=== PATIENT | female | born 1975 | race Caucasian/White ===

== ENCOUNTER 2017-01-14 15:12 | Emergency (ER) | payer MEDICAID, OTHER ==
[~2017-01-14] VITALS: Ht 162.6 cm; Wt 87.8 kg
[~2017-01-14 15:12] MED LIST: AMIT25 PO; SERT50 PO
[2017-01-14 15:19] VITALS: BP 132/88; PULSE 100; RESP 16; TEMP 98.3; O2SAT 96
[2017-01-14] MEDS ORDERED: OSEL30 PO (15:27)
[2017-01-14] MEDS ORDERED: AMOX500C PO (15:27)
--- NOTE | 2017-01-14 15:28 | PD ---
HPI . Small pimple x 2 on right side of face Chief Complaint: Oral / Dental Pain or Problem Time Seen by Provider: 15:28 Travel History International Travel<30 days: No Contact w/Intl Traveler<30days: No Traveled to known affect area: No History of Present Illness HPI 41-year-old female with history of asthma here with complaints of 2 small pimples on her right side of her face. One is located lateral to the lip the other one is located above the lip. She says this started on Thursday and has been progressively worsening. She tried popping them yesterday and only had a small amount of fluid come out. She thinks they're infected and decided to come in for further evaluation. She denies any fever or chills. She has no other complaints. She has a primary care follow-up on Thursday. [facility] Past Medical History Asthma: Yes Diminished Hearing: No ?: Not Tubal Ligation: Yes Past Surgical History Cholecystectomy: Yes Social History Alcohol Use: No Tobacco Use: No Substance Use: No Allergies-Medications (Allergen,Severity, Reaction): Coded Allergies: Darvocet-N 100 (Verified Allergy, Unknown, SOB, 01/14/17) Reported Meds & Prescriptions Reported Meds & Active Scripts Active Bactroban Topical (Mupirocin) 2% Oint 1 Appl TOPICAL BID Keflex (Cephalexin) 500 Mg Cap 500 Mg PO Q6H Bactrim DS (Sulfamethoxazole-Trimethoprim) 800-160 Mg Tab 1 Tab PO BID Reported Amoxicillin 500 Mg Cap 500 Mg PO BID Tamiflu (Oseltamivir Phosphate) 30 Mg Cap 30 Mg PO DAILY Review of Systems General / Constitutional: No: Fever Eyes: No: Visual changes HENT: No: Headaches Cardiovascular: No: Chest Pain or Discomfort Respiratory: No: Shortness of Breath Gastrointestinal: No: Abdominal Pain Genitourinary: No: Dysuria Musculoskeletal: No: Pain Skin: Positive Lesions (two small pimples/cellulitis on face), No Rash Neurologic: No: Weakness Psychiatric: No: Depression Endocrine: No: Polydipsia Hematologic/Lymphatic: No: Easy Bruising Physical Exam Narrative GENERAL: AAO x 3, no acute distress, Well-nourished, well-developed patient. SKIN: Warm and dry. No visible rashes or bruising. On right medial cheek there is a small 1 cm area of cellulitis (pimple) with erythema and warmth, no abscess formation, above lip there is also a smaller 0.7mm area of cellulitis without abscess formation. HEAD: Normocephalic and atraumatic. EYES: No scleral icterus. No injection or drainage. ENT: No nasal drainage noted. Mucous membranes pink. Airway patent. NECK: Supple, trachea midline. No JVD. CARDIOVASCULAR: Regular rate and rhythm without murmurs, gallops, or rubs. RESPIRATORY: Breath sounds equal bilaterally. No accessory muscle use. No rhonchi or rales. GASTROINTESTINAL: Abdomen soft, non-tender, nondistended. EXTREMITIES: No cyanosis or edema. BACK: Nontender without obvious deformity. No CVA tenderness. PSYCH: AAO x 3, normal affect. Data Data Last Documented VS Vital Signs Date Time Temp Pulse Resp B/P Pulse Ox O2 Delivery O2 Flow Rate FiO2 01/14/17 15:19 98.3 100 16 132/88 96 MDM Medical Decision Making Medical Screen Exam Complete: Yes Emergency Medical Condition: Yes Medical Record Reviewed: Yes Differential Diagnosis cellulitis, less likely abscess, less likely folliculitis Narrative Course 41-year-old female with history of asthma here with complaints of 2 small pimples on her right side of her face. One is located lateral to the lip the other one is located above the lip. She says this started on Thursday and has been progressively worsening. She tried popping them yesterday and only had a small amount of fluid come out. She thinks they're infected and decided to come in for further evaluation. She denies any fever or chills. She has no other complaints. She has a primary care follow-up on Thursday. Patient seen and examined. She does have 2 small areas of cellulitis on her cheek and above her lip. I have discussed that there is no abscess for me to drain. I recommend oral antibiotics and some topical Bactroban. She'll follow-up with her primary care provider on Thursday, where she can have this reassessed. If the area worsens, she has been advised to return to the emergency department. Patient verbalized understanding of instructions, questions were answered, and thanked me for their care. I advised them if their condition worsens, please return to the nearest emergency room for further care. Diagnosis Primary Impression: Cellulitis Qualified Code: L03.211 - Cellulitis of face Patient Instructions: Cellulitis (ED), General Instructions Additional Instructions: Please return to emergency department if your symptoms return or worsen. Follow up with your primary care provider. Take medications as prescribed. Return to the emergency department if this area worsens. Keep applying warm compresses as this may help form a head that may be drainable. Refrain from touching, scratching or popping these bumps, as this can worsen them. Med/Other Pt SpecificInfo: Prescription(s) given Scripts Mupirocin Topical (Bactroban Topical)2% Oint1 Appl TOPICAL BID #1 TUBE Ref 0 Prov:Jerome Hilton MD 01/14/17 Cephalexin (Keflex)500 Mg Hxp925 Mg PO Q6H #28 CAP Ref 0 Prov:Jerome Hilton MD 01/14/17 Sulfamethoxazole-Trimethoprim (Bactrim DS)800-160 Mg Tab1 Tab PO BID #20 TAB Prov:Jerome Hilton MD 01/14/17 Disposition: 01 DISCHARGE HOME Condition: Stable Nika Mckeon Jan 14, 2017 15:28
[2017-01-14] MEDS ORDERED: CEPH-460 PO (15:35)
[2017-01-14] MEDS ORDERED: BACT800T5 PO (15:35)
[2017-01-14] MEDS ORDERED: BACT2OIN TOPICAL (15:40)
== END 2017-01-14 16:09 | disposition home or self-care (01) ==
LOC: PHEFT 15:12
DX: L03.211 Cellulitis of face (principal); K13.0 Diseases of lips
CPT/HCPCS: 99283

== ENCOUNTER 2017-01-26 11:35 | Emergency (ER) | payer MEDICAID ==
[~2017-01-26] VITALS: Ht 162.6 cm; Wt 87.5 kg
[~2017-01-26 11:35] MED LIST changes: -AMIT25 PO; +AMOX500C PO; +BACT2OIN TOPICAL; +BACT800T5 PO; +CEPH-460 PO; +OSEL30 PO; -SERT50 PO
[2017-01-26 11:39] VITALS: BP 113/79; PULSE 85; RESP 16; TEMP 97.9; O2SAT 100
--- NOTE | 2017-01-26 12:16 | PD ---
HPI Chief Complaint: Eye Problems/Injury Time Seen by Provider: 12:02 Travel History International Travel<30 days: No Contact w/Intl Traveler<30days: No Traveled to known affect area: No History of Present Illness HPI This patient complains of irritation and itchiness and runny of her left eye. It's red. No eye pain or vision loss. Symptoms severity is mild to moderate PFSH Past Medical History Asthma: Yes Diminished Hearing: No Influenza Vaccination: Yes ?: Not LMP: 01/16/17 Tubal Ligation: Yes Past Surgical History Cholecystectomy: Yes Other Surgery: Yes (BACK SX. TIMES 2) Social History Alcohol Use: Yes (DAILY BEER) Tobacco Use: Yes (3 CIGS A DAY) Substance Use: No Allergies-Medications (Allergen,Severity, Reaction): Coded Allergies: Darvocet-N 100 (Verified Allergy, Unknown, SOB, 01/26/17) Reported Meds & Prescriptions Reported Meds & Active Scripts Active No Active Prescriptions or Reported Medications Review of Systems General / Constitutional: No: Fever HENT: No: Headaches Cardiovascular: No: Chest Pain or Discomfort Physical Exam Narrative NECK: Symmetrical appearance, midline trachea. No mass or crepitus. Thyroid without enlargement, tenderness, or mass. SKIN: Inspection shows no rash or ulcers. Palpation shows no induration or nodules. Psych: Normal mood and affect. Normal insight and judgment. Right sclerae clear and left is diffusely injected. There is clear watery drainage from the left eye Fluorescein exam of the left eye is negative Data Data Last Documented VS Vital Signs Date Time Temp Pulse Resp B/P Pulse Ox O2 Delivery O2 Flow Rate FiO2 01/26/17 11:46 85 16 01/26/17 11:39 97.9 113/[address] [facility] Medical Decision Making Medical Screen Exam Complete: Yes Emergency Medical Condition: Yes Medical Record Reviewed: Yes Differential Diagnosis Corneal foreign body, corneal abrasion, conjunctivitis Narrative Course I have reviewed the patient's electronic medical record. Presentation are most consistent with an acute viral conjunctivitis of the left eye. Supportive care discussed. No indication for antibiotics Diagnosis Primary Impression: Viral conjunctivitis of left eye Additional Instructions: The patient was advised to follow up with their physician and return if they worsen. Med/Other Pt SpecificInfo: Other Scripts No Active Prescriptions or Reported Meds Disposition: 01 DISCHARGE HOME Condition: Stable Tyson Neely MD Jan 26, 2017 12:16
== END 2017-01-26 12:25 | disposition home or self-care (01) ==
LOC: PHEFT 11:35
DX: B30.9 Viral conjunctivitis, unspecified (principal); Z72.0 Tobacco use
CPT/HCPCS: 99282

== ENCOUNTER 2017-03-31 09:45 | Emergency (ER) | payer MEDICAID ==
[~2017-03-31] VITALS: Ht 162.6 cm; Wt 84.4 kg
[2017-03-31 09:50] VITALS: BP 117/69; PULSE 75; RESP 16; TEMP 97.7; O2SAT 97
[2017-03-31 10:22] LABS: GLUCOSE,URINE NEG (NEG); KETONE, URINE NEG (NEG); NITRITE,URINE NEG (NEG)
--- NOTE | 2017-03-31 10:23 | PD ---
HPI Chief Complaint: Integration Lead Problem/Complaint Time Seen by Provider: 10:14 Travel History International Travel<30 days: No Contact w/Intl Traveler<30days: No Traveled to known affect area: No History of Present Illness HPI This 41-year-old female is complaining of some right flank pain. She is also having some vaginal discharge. She says there is no chance of . PFSH Past Medical History Hx Anticoagulant Therapy: No Asthma: Yes Diabetes: No Diminished Hearing: No Tetanus Vaccination: > 5 Years Influenza Vaccination: Yes ?: Not Tubal Ligation: Yes Past Surgical History Cholecystectomy: Yes Other Surgery: Yes (BACK SX. TIMES 2) Social History Alcohol Use: Yes (DAILY BEER) Tobacco Use: Yes (3 CIGS A DAY) Substance Use: No Allergies-Medications (Allergen,Severity, Reaction): Coded Allergies: Darvocet-N 100 (Verified Allergy, Unknown, SOB, 03/31/17) Reported Meds & Prescriptions Reported Meds & Active Scripts Active No Active Prescriptions or Reported Medications Review of Systems General / Constitutional: No: Fever, Chills Eyes: No: Diploplia, Blurred Vision HENT: No: Headaches, Vertigo Cardiovascular: No: Chest Pain or Discomfort Respiratory: No: Cough Gastrointestinal: No: Nausea Genitourinary: Positive: Frequency, Discharge Musculoskeletal: No: Myalgias, Arthralgias Skin: No Rash Physical Exam Narrative GENERAL: Well-developed female SKIN: Focused skin assessment warm/dry. HEAD: Atraumatic. Normocephalic. EYES: Pupils equal and round. No scleral icterus. No injection or drainage. ENT: No nasal bleeding or discharge. Mucous membranes pink and moist. NECK: Trachea midline. No JVD. CARDIOVASCULAR: Regular rate and rhythm. No murmur appreciated. RESPIRATORY: No accessory muscle use. Clear to auscultation. Breath sounds equal bilaterally. GASTROINTESTINAL: Abdomen soft, non-tender, nondistended. Hepatic and splenic margins not palpable. Pelvic: There is a brownish discharge. Equally there is mild pain cervix. No masses MUSCULOSKELETAL: No obvious deformities. No clubbing. No cyanosis. No edema. NEUROLOGICAL: Awake and alert. No obvious cranial nerve deficits. Motor grossly within normal limits. Normal speech. PSYCHIATRIC: Appropriate mood and affect; insight and judgment normal. Data Data Last Documented VS Vital Signs Date Time Temp Pulse Resp B/P Pulse Ox O2 Delivery O2 Flow Rate FiO2 03/31/17 09:50 97.7 75 16 117/69 97 Orders Urinalysis - C+S If Indicated (03/31/17 09:53) Ed Urine Pregnancytest Poc (03/31/17 10:12) Gc And Chlamydia Pcr (03/31/17 10:22) Wet Prep Profile (03/31/17 10:22) Urine Culture (03/31/17 10:00) Fluconazole (Diflucan) (03/31/17 11:45) Labs Laboratory Tests Test 03/31/17 03/31/17 10:00 10:50 Urine Collection Type CLEAN CATCH Urine Color YELLOW Urine Turbidity CLEAR Urine pH 6.0 Urine Specific [place] 1.021 Urine Protein TRACE mg/dL Urine Glucose (UA) NEG mg/dL Urine Ketones NEG mg/dL Urine Occult Blood MOD Urine Nitrite NEG Urine Bilirubin NEG Urine Leukocyte Esterase MOD Urine RBC 15-19 /hpf Urine WBC 25-49 /hpf Urine Squamous Epithelial > 8 /hpf Cells Urine Bacteria MOD /hpf Urine Trichomonas MOD Microscopic Urinalysis Comment CULTURE INDICATED Urine Collection Time 1000 Clue Cells (Wet Prep) NONE SEEN Vaginal Trichomonas (Wet Prep) PRESENT Vaginal Yeast (Wet Prep) PRESENT MDM Medical Decision Making Medical Screen Exam Complete: Yes Emergency Medical Condition: Yes Medical Record Reviewed: Yes Differential Diagnosis Differential includes UTI, pyelonephritis, vaginitis Narrative Course Urinalysis shows evidence of urinary tract infection. Wet prep is positive for Trichomonas and yeast. Diagnosis Primary Impression: Urinary tract infection Qualified Code: N39.0 - Urinary tract infection without hematuria, site unspecified Additional Impressions: Trichomonal infection Vaginitis Qualified Code: N76.0 - Acute vaginitis Scripts Metronidazole (Flagyl)500 Mg Vhs542 Mg PO TID 7 Days Ref 0 Prov:Rafael Gaspar MD 03/31/17 Sulfamethoxazole-Trimethoprim (Bactrim DS)800-160 Mg Tab1 Tab PO BID #14 TAB Ref 0 Prov:Rafael Gaspar MD 03/31/17 Disposition: 01 DISCHARGE HOME Condition: Stable Rafael Gaspar MD March 31, 2017 10:23
[2017-03-31 10:28] LABS: BLOOD, URINE MOD (NEG)
[2017-03-31 10:40] LABS: METHOD OF COLLECTION CLEAN CATCH; URINE COLOR YELLOW (YELLW/STRAW)
[2017-03-31 10:42] LABS: BACTERIA, URINE MOD /hpf; RBC, URINE 15-19 /hpf (0-3); SQUAMOUS EPITHELIAL CELL URINE > 8 /hpf (0-5)
[2017-03-31 10:44] LABS: COMMENT (UR) CULTURE INDICATED; CULTURE IF INDICATED CULTURE INDICATED
[2017-03-31] MEDS ORDERED: METR-1 PO (11:37)
[2017-03-31] MEDS ORDERED: BACT800T5 PO (11:37)
[2017-03-31] MEDS ORDERED: FLUCONAZOLE 100 MG TAB PO ONE (11:45)
[2017-03-31 11:46] VITALS: BP 111/62
[2017-03-31 16:56] LABS: CHLAMYDIA PCR NOT DETECTED (NOT DETECT); NEISSERIA PCR NOT DETECTED (NOT DETECT)
== END 2017-03-31 11:47 | disposition home or self-care (01) ==
LOC: PHED 09:45
DX: N39.0 Urinary tract infection, site not specified (principal); A59.9 Trichomoniasis, unspecified; N76.0 Acute vaginitis; J45.909 Unspecified asthma, uncomplicated; F17.210 Nicotine dependence, cigarettes, uncomplicated
CPT/HCPCS: 81001; 84703; 87086; 87210; 87491; 87591; 99284

== ENCOUNTER 2017-04-24 14:54 | Emergency (ER) | payer MEDICAID ==
[~2017-04-24] VITALS: Ht 165.1 cm; Wt 81.5 kg
[~2017-04-24 14:54] MED LIST changes: -AMOX500C PO; -BACT2OIN TOPICAL; -CEPH-460 PO; +METR-1 PO; -OSEL30 PO
[2017-04-24 15:02] VITALS: BP 114/71; PULSE 78; RESP 16; TEMP 97.7; O2SAT 98
[2017-04-24] MEDS ORDERED: DOXY100C PO (15:16)
[2017-04-24] MEDS ORDERED: TRAM50TA PO (15:16)
[2017-04-24] MEDS ORDERED: IBUP800T23 PO (15:16)
--- NOTE | 2017-04-24 15:17 | PD ---
HPI . Right breast lesion Chief Complaint: Skin Problem Time Seen by Provider: 15:11 Travel History International Travel<30 days: No Contact w/Intl Traveler<30days: No Traveled to known affect area: No History of Present Illness HPI Patient presents with a 2 day history of a painful lesion on her right breast. There has been no associated drainage. No modifying factors. Pain is constant and aching and is 8/10. She has been treating it with warm compresses and coconut oil. PFSH Past Medical History Hx Anticoagulant Therapy: No Asthma: Yes Diabetes: No Diminished Hearing: No ?: Not LMP: 04/18/17 Tubal Ligation: Yes Past Surgical History Cholecystectomy: Yes Other Surgery: Yes (BACK SX. TIMES 2) Social History Alcohol Use: Yes (DAILY BEER) Tobacco Use: Yes (3 CIGS A DAY) Substance Use: No Allergies-Medications (Allergen,Severity, Reaction): Coded Allergies: Darvocet-N 100 (Verified Allergy, Severe, SOB, 04/24/17) Reported Meds & Prescriptions Reported Meds & Active Scripts Active No Active Prescriptions or Reported Medications Review of Systems Except as stated in HPI: all other systems reviewed are Neg General / Constitutional: No: Fever, Chills Skin: Positive Change in Pigmentation, Positive Lesions Physical Exam Narrative GENERAL: Awake and alert and in no acute distress. SKIN: Warm and dry. She has an area of induration and erythema on the right breast. It is about the size of a quarter. There is no fluctuance. HEAD: Atraumatic. Normocephalic. EYES: Pupils equal and round. NECK: Trachea midline. CARDIOVASCULAR: Regular rate and rhythm. RESPIRATORY: No accessory muscle use. MUSCULOSKELETAL: No obvious deformities. No edema. NEUROLOGICAL: Awake and alert. No obvious cranial nerve deficits. Motor grossly within normal limits. Normal speech. PSYCHIATRIC: Appropriate mood and affect; insight and judgment normal. Data Data Last Documented VS Vital Signs Date Time Temp Pulse Resp B/P Pulse Ox O2 Delivery O2 Flow Rate FiO2 04/24/17 15:02 97.7 78 16 114/71 98 MDM Medical Decision Making Medical Screen Exam Complete: Yes Emergency Medical Condition: Yes Differential Diagnosis My differential diagnosis includes but is not limited to localized wound infection, cellulitis, abscess Narrative Course The patient presents with a painful mass on her right breast. On exam, she has an early abscess which is not ready to be drained. She will be started on antibiotics. She should continue warm compresses. She should be rechecked in 2 days. The patient has recently been treated with Bactrim. Therefore, she will be treated with doxycycline. Diagnosis Primary Impression: Breast abscess Patient Instructions: Abscess (ED), General Instructions Med/Other Pt SpecificInfo: Prescription(s) given Scripts Ibuprofen 800 Mg Onr000 Mg PO Q8H PRN (Pain/Inflammation) #60 TAB Ref 0 Prov:Candy Marquis MD 04/24/17 Tramadol 50 Mg Tab50 Mg PO Q4H PRN (PAIN) #12 TAB Ref 0 Prov:Candy Marquis MD 04/24/17 Doxycycline Hyclate 100 Mg Gih538 Mg PO BID #20 CAP Ref 0 Prov:Candy Marquis MD 04/24/17 Disposition: 01 DISCHARGE HOME Condition: Stable Candy Marquis MD Apr 24, 2017 15:16
== END 2017-04-24 15:34 | disposition home or self-care (01) ==
LOC: PHEFT 14:54
DX: N61.1 Abscess of the breast and nipple (principal)
CPT/HCPCS: 99284

== ENCOUNTER 2017-05-25 15:51 | Emergency (ER) | payer MEDICAID ==
[~2017-05-25 15:51] MED LIST changes: -BACT800T5 PO; +DOXY100C PO; +IBUP800T23 PO; -METR-1 PO; +TRAM50TA PO
[2017-05-25 16:00] VITALS: BP 121/86; PULSE 91; RESP 20; TEMP 97.6; O2SAT 96
== END 2017-05-25 17:14 | disposition left against medical advice (07) ==
LOC: PHED 15:51
DX: R68.89 Other general symptoms and signs (principal)
CPT/HCPCS: 99281

== ENCOUNTER 2017-07-24 10:50 | Emergency (ER) | payer MEDICAID ==
[~2017-07-24] VITALS: Ht 165.1 cm; Wt 80.0 kg
[2017-07-24 10:57] VITALS: BP 121/72; PULSE 83; RESP 18; TEMP 97.9; O2SAT 96
[2017-07-24] MEDS ORDERED: PENI500T PO (11:22)
--- NOTE | 2017-07-24 11:23 | PD ---
HPI Chief Complaint: ENT Complaint Time Seen by Provider: 11:11 Travel History International Travel<30 days: No Contact w/Intl Traveler<30days: No Traveled to known affect area: No History of Present Illness HPI 41-year-old female with chief complaint of sore throat and fever 2 days. Patient reports pain with swallowing but is able to eat, drink, swallowed secretions without difficulty. She denies cough, nasal congestion, rash. Symptom severity mild. No aggravating or alleviating factors. Pain scale 4/10. PFSH Past Medical History Medical History: Denies Significant Hx Hx Anticoagulant Therapy: No Asthma: Yes Diabetes: No Diminished Hearing: No Tetanus Vaccination: > 5 Years Influenza Vaccination: Yes ?: Not LMP: 07/2017 Tubal Ligation: Yes Past Surgical History Cholecystectomy: Yes Other Surgery: Yes (Back X's 2) Social History Alcohol Use: Yes (socially) Tobacco Use: No Substance Use: No Allergies-Medications (Allergen,Severity, Reaction): Coded Allergies: acetaminophen (Unverified Allergy, Severe, SOB, 07/24/17) propoxyphene (Unverified Allergy, Severe, SOB, 07/24/17) tramadol (Unverified Allergy, Unknown, 07/24/17) Reported Meds & Prescriptions Reported Meds & Active Scripts Active No Active Prescriptions or Reported Medications Review of Systems Except as stated in HPI: all other systems reviewed are Neg General / Constitutional: Positive: Fever HENT: Positive: Sore Throat Physical Exam Narrative GENERAL: Well-nourished, well-developed patient. SKIN: Focused skin assessment warm/dry. HEAD: Normocephalic. EYES: No scleral icterus. No injection or drainage. NECK: Supple, trachea midline. No JVD. Mild anterior cervical lymphadenopathy. THROAT: Bilateral tonsillar swelling and erythema with small amount of exudate. Uvula is midline. Airway is patent. CARDIOVASCULAR: Regular rate and rhythm without murmurs, gallops, or rubs. RESPIRATORY: Breath sounds equal bilaterally. No accessory muscle use. GASTROINTESTINAL: Abdomen soft, non-tender, nondistended. MUSCULOSKELETAL: No cyanosis, or edema. Data Data Last Documented VS Vital Signs Date Time Temp Pulse Resp B/P (MAP) Pulse Ox O2 Delivery O2 Flow Rate FiO2 07/24/17 10:57 97.9 83 18 121/72 (88) 96 MDM Medical Decision Making Medical Screen Exam Complete: Yes Emergency Medical Condition: Yes Differential Diagnosis Strep pharyngitis, viral pharyngitis, mononucleosis Narrative Course 41-year-old female with chief complaint of sore throat and fever 2 days. On exam patient has evidence of exudative pharyngitis. Patient be treated for strep pharyngitis. Diagnosis Primary Impression: Pharyngitis Qualified Codes: J02.9 - Acute pharyngitis, unspecified Referrals: [facility] Additional Instructions: Take the medication as prescribed. Take [id number] Motrin [id number] milligrams every 6-8 hours as needed for pain. Stay well hydrated by drinking plenty fluids. Follow-up with her doctor. Return to emergency department if he developed new or worsening symptoms. Scripts Penicillin V Potassium (Penicillin V Potassium) 500 Mg Tab 500 MG PO Q12HR for Infection for 10 Days, TAB 0 Refills Prov: Natalie Jarvis 07/24/17 Disposition: 01 DISCHARGE HOME Condition: Stable Natalie Jarvis Jul 24, 2017 11:23
== END 2017-07-24 11:46 | disposition home or self-care (01) ==
LOC: PHEFT 10:50
DX: J02.9 Acute pharyngitis, unspecified (principal); R50.9 Fever, unspecified; J45.909 Unspecified asthma, uncomplicated
CPT/HCPCS: 99283

== ENCOUNTER 2017-10-06 10:55 | Emergency (ER) | payer MEDICAID ==
[~2017-10-06] VITALS: Ht 165.1 cm; Wt 76.6 kg
[~2017-10-06 10:55] MED LIST changes: -DOXY100C PO; -IBUP800T23 PO; +PENI500T PO; -TRAM50TA PO
[2017-10-06 11:00] VITALS: BP 113/65; PULSE 82; RESP 18; TEMP 97.3; O2SAT 98
[2017-10-06] MEDS ORDERED: EXCETAB31 (11:12)
--- NOTE | 2017-10-06 11:22 | PD ---
HPI Chief Complaint: Lump, Cyst, Hernia Time Seen by Provider: 11:08 Travel History International Travel<30 days: No Contact w/Intl Traveler<30days: No Traveled to known affect area: No History of Present Illness HPI This 41-year-old female says that she was checking her breasts this morning and noted a lump under left breast. It is somewhat tender to palpation. She was here in April of this year with an abscess on the right breast. This resolved with antibiotic treatment and ultimately drained. There is no family history of breast cancer. Her mother is here with her and says she has fibrocystic disease. PFSH Past Medical History Hx Anticoagulant Therapy: No Asthma: Yes Diabetes: No Diminished Hearing: No ?: Not LMP: 09/09 Tubal Ligation: Yes Past Surgical History Cholecystectomy: Yes Other Surgery: Yes (Back X's 2) Social History Alcohol Use: Yes (socially) Tobacco Use: No Substance Use: No Allergies-Medications (Allergen,Severity, Reaction): Coded Allergies: acetaminophen (Unverified Allergy, Severe, SOB, 10/06/17) propoxyphene (Unverified Allergy, Severe, SOB, 10/06/17) tramadol (Unverified Allergy, Unknown, 10/06/17) Reported Meds & Prescriptions Reported Meds & Active Scripts Active Reported Excedrin Migraine Caplet (Aspirin/Acetaminophen/Caffeine) 250 Mg-250 Mg-65 Mg Tablet Review of Systems General / Constitutional: No: Fever, Chills Eyes: No: Diploplia, Blurred Vision Cardiovascular: No: Chest Pain or Discomfort, Palpitations Respiratory: No: Cough Skin: Positive Lumps, No Rash Psychiatric: No: Anxiety Physical Exam Narrative GENERAL: Well-nourished, well-developed patient. SKIN: Focused skin assessment warm/dry. HEAD: Normocephalic. EYES: No scleral icterus. No injection or drainage. NECK: Supple, trachea midline. No JVD or lymphadenopathy. Breast exam right side do not feel any lumps. On the left side there is a oblong area which is firm about a centimeter below the nipple. It is somewhat tender. There is no erythema or warmth. It is freely movable. There is no palpable lymphadenopathy MUSCULOSKELETAL: No cyanosis, or edema. BACK: Nontender without obvious deformity. No CVA tenderness. Data Data Last Documented VS Vital Signs Date Time Temp Pulse Resp B/P (MAP) Pulse Ox O2 Delivery O2 Flow Rate FiO2 10/06/17 11:00 97.3 82 18 113/65 (81) 98 MDM Medical Decision Making Medical Screen Exam Complete: Yes Emergency Medical Condition: Yes Medical Record Reviewed: Yes Differential Diagnosis Differential includes fibrocystic disease, breast cancer Narrative Course Patient had called her primary care physician but was told she couldn't be seen until November. I will refer her to our general surgeon plc controls engineer but I have recommended to her that she may need to call her insurance company to see if she needs a referral from her primary care physician Diagnosis Primary Impression: Breast lump Referrals: Kane Covington MD Disposition: DISCHARGE HOME Condition: Stable Rafael Gaspar MD Oct 06, 2017 11:22
== END 2017-10-06 11:34 | disposition home or self-care (01) ==
LOC: PHED 10:55
DX: N63.20 Unspecified lump in the left breast, unspecified quadrant (principal); J45.909 Unspecified asthma, uncomplicated; Z79.82 Long term (current) use of aspirin
CPT/HCPCS: 99282; 99283